=== PATIENT | male | born 1955 | race Caucasian/White ===

== ENCOUNTER → 2017-07-10 | Outpatient (CLI) | payer OTHER ==
[~2017-07-10] MED LIST: IBUP800T19 PO; IOHEXOL 300 MG/ML 75 ML VIAL. IV ONE; LISI-338 PO; NIAC500T9 PO
--- NOTE | 2017-07-10 13:31 | RAD ---
CTA of the chest with contrast, 07/10/2017: History: Shortness of breath Multidetector CT imaging was performed following an IV bolus injection of iodinated contrast material. Multiplanar reconstructions produced including coronal MIP images. The central pulmonary arteries are well opacified and no filling defects are seen to suggest pulmonary emboli. There is calcific plaquing of the thoracic aorta without evidence of aneurysm. Several scattered coronary calcifications are noted. No mediastinal or hilar adenopathy is evident. Emphysematous changes are present in the lungs. There are scattered linear parenchymal opacities compatible with scarring. These linear densities are most in the periphery of the lungs, particularly in the medial aspect of the right lower lobe. No pulmonary mass is seen. There is no evidence of pleural fluid. IMPRESSION: 1. No CT evidence of central pulmonary emboli. 2. Emphysema with parenchymal scarring. 3. Coronary artery calcifications. PQRS Compliance Statement: One or more of the following individualized dose reduction techniques were utilized for this examination: 1. Automated exposure control 2. Adjustment of the mA and/or kV according to patient size 3. Use of iterative reconstruction technique
== END | disposition home or self-care (01) ==
LOC: CT 11:43
PROVIDERS: ATTEND Nurse Practitioner Family
DX: J43.9 Emphysema, unspecified (principal); J98.4 Other disorders of lung; I25.10 Atherosclerotic heart disease of native coronary artery without angina pectoris; I70.0 Atherosclerosis of aorta; I10 Essential (primary) hypertension
CPT/HCPCS: 71275

== ENCOUNTER → 2019-12-23 | Outpatient (CLI) | payer MEDICARE, OTHER ==
[~2019-12-23] MED LIST changes: -IOHEXOL 300 MG/ML 75 ML VIAL. IV ONE
--- NOTE | 2019-12-23 16:25 | RAD ---
CERVICAL SPINE 2-3V Clinical Indication: Neck pain radiates to left shoulder/scapula x7 weeks. Comparison: None. Findings: On lateral view the cervical spine is only seen to the level of C5/C6. There is disc space narrowing and degenerative endplate spurring and sclerosis of C5/C6. Small bridging osteophytes of C4/C5. Disc space narrowing at C4/C5. The alignment is maintained. Prevertebral soft tissues are normal. There is multilevel facet and uncovertebral joint hypertrophy. The lung apices are clear. Lateral masses of C1 are symmetric. The odontoid is intact. IMPRESSION: 1. Lower cervical spine is incompletely imaged. 2. Moderate degenerative spondylosis. Electronically signed by: Abhilash Dawson MD (12/23/2019 4:22 PM) [id number]
== END | disposition home or self-care (01) ==
LOC: DXRAD 09:08
PROVIDERS: ATTEND Specialist
DX: M47.812 Spondylosis without myelopathy or radiculopathy, cervical region (principal); M48.02 Spinal stenosis, cervical region; M25.78 Osteophyte, vertebrae
CPT/HCPCS: 72040

== ENCOUNTER → 2020-03-23 | Outpatient (CLI) | payer MEDICARE, OTHER ==
--- NOTE | 2020-03-23 12:18 | RAD ---
EXAM: HAND BILAT 3V 03/23/2020 10:34 AM CLINICAL INDICATION:Pain COMPARISON:None TECHNIQUE:3 views of the right and left hand FINDINGS: Left hand: No acute fracture. Alignment is normal. There is moderate to severe joint space narrowing with subchondral sclerosis and large osteophytes at the first CMC joint. Mild joint space narrowing with small osteophytes of the thumb MCP joint and throughout the distal interphalangeal joints. No erosions. Bone mineralization is normal. No focal soft tissue abnormality. Right hand: No acute fracture. Alignment is normal. Moderate to severe joint space with subchondral sclerosis and large osteophytes at the at the first CMC joint. There is moderate joint space narrowing with small osteophytes at the thumb MCP joint. Mild joint space narrowing and small osteophytes of the distal interphalangeal joints. Bone mineralization is normal. No erosions. Soft tissue is normal. IMPRESSION:Multifocal osteoarthrosis of the hands, severe at the first CMC joint bilaterally. Electronically signed by: Herlinda Harris MD (03/23/2020 12:14 PM) [id number]
== END | disposition home or self-care (01) ==
LOC: DXRAD 10:28
PROVIDERS: ATTEND Orthopaedic Surgery
DX: M19.042 Primary osteoarthritis, left hand (principal); M19.041 Primary osteoarthritis, right hand; M25.742 Osteophyte, left hand; M25.741 Osteophyte, right hand; M25.842 Other specified joint disorders, left hand; M25.841 Other specified joint disorders, right hand
CPT/HCPCS: 73130

== ENCOUNTER → 2020-09-25 | Outpatient (CLI) | payer MEDICARE, OTHER ==
--- NOTE | 2020-09-25 17:22 | RAD ---
Examination: 2 views of the lumbar spine and 2 views of the left hip HISTORY: History of hip pain, back pain COMPARISON: Lumbar spine11/09/2013 FINDINGS: Lumbar vertebral body heights are maintained. Moderate to severe joint space loss identified in the lower lumbar spine particularly at L3-L4, L4-L5, L5-S1 vertebral levels. Moderate neural foraminal narrowing identified at the L4-L5, L5-S1 vertebral levels. The left femoral head is within the acetabulum. Moderate joint space loss identified in the left hip joint likely degenerative changes. IMPRESSION: 1. Severe degenerative changes lower lumbar spine with bilateral neural foraminal narrowing. 2. Moderate degenerative changes left hip joint. Electronically signed by: Ja De La Rosa MD (09/25/2020 5:19 PM) [id number]
== END ==
LOC: DXRAD 15:51
PROVIDERS: ATTEND Specialist
DX: M16.12 Unilateral primary osteoarthritis, left hip (principal); M48.07 Spinal stenosis, lumbosacral region; M47.816 Spondylosis without myelopathy or radiculopathy, lumbar region
CPT/HCPCS: 72100; 73502

== ENCOUNTER 2020-12-29 06:11 | Emergency (ER) | payer MEDICARE, OTHER ==
[~2020-12-29] VITALS: Ht 188 cm; Wt 134.0 kg
[2020-12-29 06:11] VITALS: BP 144/70
[~2020-12-29 06:11] MED LIST changes: -LISI-338 PO; +LISI-517 PO
--- NOTE | 2020-12-29 07:00 | PHYS DOC ---
Past History Past Medical History: High Cholesterol, Hypertension Past Surgical History: Tonsillectomy Smoking: Non-smoker Alcohol Use: Occasionally Drug Use: None Adult General Chief Complaint Chief Complaint: ANKLE PROBLEM HPI HPI Patient is a 65-year-old male who presents to the emergency room complaining of severe posterior right ankle pain. Patient was on his way to work this morning when he stepped off of a curb and rolled his ankle. He states that he did not fall and was able to catch himself. He now has severe pain if he stands on the ball of his foot that shoots into his posterior leg. He is able to move his foot up and down but states that it causes a great deal of pain and numbness into his foot. He denies any other injuries. Review of Systems Review of Systems Complete ROS is negative unless otherwise documented in HPI Allergies Allergies Allergies Coded Allergies Type Severity Reaction Last Updated Verified erythromycin base Allergy Intermediate 07/10/17 Yes ethyl alcohol Allergy Intermediate 07/10/17 Yes tramadol Allergy Intermediate 07/10/17 Yes Physical Exam Physical Exam General: Awake, alert, NAD. Well Nourished, well hydrated. Cooperative HEENT: Atraumatic, EOMI, PERRL, airway patent, moist oral mucosa Neck: Supple, trachea midline Respiratory: CTA bilaterally, normal effort, no wheezing/crackles CV: RRR, no murmur, cap refill <2 GI: Soft, nondistended, nontender, no masses MSK: Right lower extremity: 2+ DP pulse, intact sensation, intact dorsi flexion, patient able to plantar flex to about 40 degrees, tenderness along the Achilles tendon with swelling Skin: Warm, dry, intact Neuro: A&O x3, speech NL, sensory and motor grossly intact, no focal deficits Psych: Normal affect, normal mood, not suicidal or homicidal EKG EKG [] Radiology/Procedures Radiology/Procedures [] Heart Score Risk Factors: Risk Factors: DM, Current or recent (<one month) smoker, HTN, HLP, family history of CAD, obesity. Risk Scores: Risk Factors: DM, Current or recent (<one month) smoker, HTN, HLP, family history of CAD, obesity. Course & Med Decision Making Course & Med Decision Making Pertinent Labs and Imaging studies reviewed. (See chart for details) Patient is a 65-year-old male who presents to the emergency room complaining of severe ankle pain. Exam is concerning for possible Achilles tendon rupture or partial tear. X-ray will be ordered to rule out fracture. X-ray also is suggestive of an Achilles rupture. We will place the patient in a posterior splint with 15 degrees of flexion to help with healing. I discussed with him t hat he should call orthopedic surgery today to get a follow-up appointment. We have discussed strict nonweightbearing status. Patient's test results and vitals while in the ED were fully reviewed and discussed with the patient. Patient is stable and at this time does not need admission to the hospital. We have discussed strict return precautions and the importance of following up with their Primary Care Physician. Patient stated understanding and was given an opportunity to ask any questions. Patient is in agreement with plan. Dragon Disclaimer Dragon Disclaimer This electronic medical record was generated, in whole or in part, using a voice recognition dictation system. Departure Departure: Impression: Primary Impression: Achilles rupture, right Disposition: 01 DC HOME SELF CARE/HOMELESS Condition: STABLE Referrals: JAMEY MILES MD (PCP) Patient Instructions: Achilles Tendon Rupture (Complete) Scripts Oxycodone Hcl/Acetaminophen (PERCOCET 5-325 MG TABLET ) 1 Each Tablet 1 TAB PO PRN QID PRN for SEVERE PAIN 7-10 MDD 4 Tablet(s) for 2 Days, #8 TAB 0 Refills Prov: ADELITA NAVARRO MD 12/29/20 ADELITA NAVARRO MD Dec 29, 2020 06:59
--- NOTE | 2020-12-29 07:00 | RAD ---
Study: XR EXAM OF ANKLE_RIGHT 3VIEWS Indication: Fall. Pain. Comparison: None. Findings: Foci of ossification along the expected course of the Achilles between 2.8 and 4.8 cm proximal to the insertion. There is a degree of soft tissue prominence both proximal and distal to these foci which at a minimum is from tendinopathy but a tear is not excluded. Kager's fat pad is mildly edematous. The malleoli are intact. Mild degenerative proliferation at the tip of both the medial and lateral ma lleoli. Symmetric ankle mortise. Small plantar calcaneal spur. Bipartite os peroneum. Impression: Two adjacent foci of ossification along the Achilles a few centimeters above the insertion. It is ind eterminate without any available comparisons if this is chronic or indicative of a recent Achilles av ulsion. Eventual MRI would allow for complete assessment. Also correlate for loss of ability to plant ar flex the foot. Electronically signed by: MERRILL FABIAN MD (12/29/2020 6:58 AM) [facility]
[2020-12-29] MEDS ORDERED: OXYC1TAB15 PO (07:15)
== END 2020-12-29 07:35 | disposition home or self-care (01) ==
LOC: ER 06:11
DX: S86.011A Strain of right Achilles tendon, initial encounter (principal); E78.00 Pure hypercholesterolemia, unspecified; I10 Essential (primary) hypertension; Z88.1 Allergy status to other antibiotic agents; Z88.6 Allergy status to analgesic agent; Z88.8 Allergy status to other drugs, medicaments and biological substances; X50.9XXA Other and unspecified overexertion or strenuous movements or postures, initial encounter; Y93.89 Activity, other specified; Y92.89 Other specified places as the place of occurrence of the external cause; Y99.8 Other external cause status
CPT/HCPCS: 29515; 73610; 99283

== ENCOUNTER → 2021-08-17 | Outpatient (CLI) | payer MEDICARE, OTHER ==
[~2021-08-17] MED LIST changes: +OXYC1TAB15 PO
--- NOTE | 2021-08-17 08:19 | RAD ---
EXAMINATION: CT HEAD/BRAIN WO CLINICAL HISTORY: Syncope and collapse, fall one week ago TECHNIQUE: Serial axial images without IV contrast were obtained from the vertex to the foramen magnu m. CT Dose Reduction Employed: One or more of the following individualized dose reduction techniques wer e utilized for this examination: 1. Automated exposure control 2. Adjustment of the mA and/or kV ac cording to patient size 3. Use of iterative reconstruction technique. COMPARISON: None FINDINGS: Acute Change: No evidence of an acute infarct or other acute parenchymal process. Hemorrhage: No evidence of acute intracranial hemorrhage. Mass Lesion/Mass Effect: No evidence of intracranial mass or extraaxial fluid collection. No signific ant mass effect. Chronic Change: Atherosclerotic calcification of the bilateral carotid siphons. Parenchyma: Mild generalized volume loss. Parenchyma otherwise within normal limits for age. Ventricles: Ventricular enlargement concordant with degree of parenchymal volume loss. Paranasal Sinuses and Skull Base: Visualized paranasal sinuses clear. Visualized skull base and soft tissues unremarkable. IMPRESSION: No evidence of acute intracranial abnormality. Electronically signed by: Nomi Ross DO (08/17/2021 8:16 AM) [facility]
== END ==
LOC: CT 07:39
PROVIDERS: ATTEND Physician Assistant Surgical
DX: R55 Syncope and collapse (principal)
CPT/HCPCS: 70450

== ENCOUNTER → 2021-09-12 | Outpatient (CLI) | payer MEDICARE, OTHER ==
[~2021-09-12] MED LIST changes: -LISI-517 PO; +LISI5TAB15 PO
--- NOTE | 2021-09-12 14:06 | RAD ---
EXAM: AP pelvis, AP and lateral views left hip DATE: 09/12/2021 9:29 AM INDICATION: Reason: S/P LEFT HIP REPLACEMENT 07/2021 / [facility]. Instructions: / History: . COMPARISON: No Prior FINDINGS/ IMPRESSION: 1. Changes of left total hip arthroplasty, in good alignment without definite hardware complication or fracture. 2. Moderate to severe right hip joint osteoarthritis. 3. Mild SI joint degenerative change and moderate lower lumbar spine degenerative change. 4. No evidence of acute fracture or dislocation. Electronically signed by: Regan Villanueva MD (09/12/2021 2:03 PM) [id number]
== END ==
LOC: RAD 09:24
PROVIDERS: ATTEND Orthopaedic Surgery
DX: M16.11 Unilateral primary osteoarthritis, right hip (principal); M47.816 Spondylosis without myelopathy or radiculopathy, lumbar region; M46.1 Sacroiliitis, not elsewhere classified; Z96.642 Presence of left artificial hip joint
CPT/HCPCS: 73502

== ENCOUNTER → 2022-01-07 | Outpatient (CLI) | payer MEDICARE, OTHER ==
--- NOTE | 2022-01-07 12:12 | RAD ---
Left lower extremity venous duplex study Clinical History: Lower extremity pain Technique: Using a combination of real time ultrasound imaging and color-flow and pulse Doppler imagi ng techniques, including spectral analysis, graded compression and augmentation, duplex evaluation of the deep venous system of the left lower extremity was performed. Multiple images were obtained. Findings: There is no sonographic evidence of deep venous thrombosis involving the visualized deep ve nous structures of the left lower extremity Impression: No evidence of deep venous thrombosis involving the left lower extremity Electronically signed by: Brice Gates MD (01/07/2022 12:10 PM) [id number]
--- NOTE | 2022-01-07 12:14 | RAD ---
4 views left femur 01/07/2022 11:20 AM Indication: Reason: HIP REPLACEMENT IN JUL. PAIN IN HIP SINCE DEC GOES DOWN LEG / Spl. Instructions: / History: Comparison: Left hip radiographs September 12, 2021 Findings: Left hip replacement noted. Left knee replacement noted. No fracture or dislocation is seen . No overt hardware complication or loosening is seen. No acute soft tissue abnormality is identified radiographically. Impression: No radiographic evidence of acute osseous abnormality Electronically signed by: Brice Gates MD (01/07/2022 12:12 PM) [id number]
--- NOTE | 2022-01-07 12:50 | RAD ---
XR LUMBAR SPINE 2-3V Clinical Indication: Reason: HIP REPLACEMENT IN SEPT PAIN SINCE OCT. IN HIP GOES DOWN LEG / Comparison: Left femur January 07, 2022. Findings: There is joint space narrowing of the right hip. The sacroiliac joints are symmetric. The vertebral b bharat heights are maintained. There is minimal grade 1 retrolisthesis of L3 on L4. The alignment is oth erwise maintained. There is moderate disc space narrowing, vacuum disc phenomenon, and reactive endpl ate changes of L3/L4 and L4/L5 and L5/S1. Atherosclerotic abdominal aorta and iliac arteries. IMPRESSION: 1. There is degenerative spondylosis in the lower lumbar spine. 2. No acute fracture. Electronically signed by: Abhilash Dawson MD (01/07/2022 12:47 PM) [id number]
--- NOTE | 2022-01-07 12:55 | RAD ---
XR KNEE _3 VIEWS_LT Clinical Indication: Reason: HIP REPLACEMENT IN SEPT, PAIN SINCE DEC IN LEG ANTERIOR AND POST. / Comparison: None. Findings: There is knee arthroplasty. The alignment is anatomic. There is no acute fracture. There is no eviden ce of loosening. Resurfacing of the patella. Patella in anatomic position. There is small joint effus ion. No soft tissue swelling is seen. Mild arterial calcifications. IMPRESSION: 1. Right knee arthroplasty. No acute fracture. 2. Small joint effusion. Electronically signed by: Abhilash Dawson MD (01/07/2022 12:53 PM) [id number]
== END ==
LOC: RAD 11:03
PROVIDERS: ATTEND Specialist
DX: M47.816 Spondylosis without myelopathy or radiculopathy, lumbar region (principal); I70.0 Atherosclerosis of aorta; I70.8 Atherosclerosis of other arteries; M48.07 Spinal stenosis, lumbosacral region; M25.462 Effusion, left knee; M79.605 Pain in left leg; M25.552 Pain in left hip
CPT/HCPCS: 72100; 73552; 73562; 93971